=== PATIENT | female | born 2000 | race Hispanic/Latino ===

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

== ENCOUNTER 2024-03-01 13:48 | Observation (INO) | payer OTHER ==
[~2024-03-01] VITALS: Ht 157.5 cm; Wt 81.6 kg
[2024-03-01 14:18] VITALS: BP 135/86; PULSE 111; RESP 18; O2SAT 98
[2024-03-01 14:34] LABS: APPEARANCE,URINE CLOUDY (CLEAR); BILIRUBIN,URINE NEGATIVE (NEGATIVE); COLOR,URINE YELLOW (YELLOW); GLUCOSE, URINE (UA) NEGATIVE (NEGATIVE); KETONES,URINE NEGATIVE (NEGATIVE); LEUKOCYTE ESTERASE ,URINE NEGATIVE Leu/uL (NEGATIVE); NITRATE,URINE NEGATIVE (NEGATIVE); OCCULT BLOOD,URINE NEGATIVE (NEGATIVE); PH,URINE 6.5 (5.0-8.0); PROTEIN,URINE 20 mg/dL (NEGATIVE)
[2024-03-01 14:37] LABS: ADD UA MICROSCOPIC YES
[2024-03-01 14:41] LABS: BACTERIA,URINE RARE /HPF (None Seen); MUCUS,URINE RARE LPF (None Seen); OTHER CASTS, URINE 1 /LPF (None Seen); SQUAMOUS EPITHELIAL CELL,UR FEW /HPF (0-2); UNCLASSIFIED CRYSTAL 4 /HPF (None Seen); WBC CLUMP FEW /HPF (0-1); YEAST,URINE BUDDING MOD /HPF (None Seen)
[2024-03-01] MEDS: LACTATED RINGERS 1000ML IV SCH (15:29)
[2024-03-01] MEDS: TERBUTALINE SULFATE VIAL 1MG/ML SQ PRN (15:29)
== END 2024-03-01 16:55 | disposition home or self-care (01) ==
LOC: EDH 13:48 → LDH 14:25
PROVIDERS: ADMIT Obstetrics & Gynecology; ATTEND Obstetrics & Gynecology
DX: O62.9 Abnormality of forces of labor, unspecified (principal); O34.63 Maternal care for abnormality of vagina, third trimester; N89.8 Other specified noninflammatory disorders of vagina; Z3A.36 36 weeks gestation of pregnancy; Z79.899 Other long term (current) drug therapy
CPT/HCPCS: 96372; 96361; 96360; 87088; 81001; G0378 ×2; G0379; J7120 ×2; J3105